=== PATIENT | male | born 1975 | race Caucasian/White ===

== ENCOUNTER 2021-12-11 18:09 | Emergency (ER) | payer SELFPAY ==
[~2021-12-11] VITALS: Ht 170.2 cm; Wt 106.0 kg
[2021-12-11 19:31] VITALS: BP 117/68
[2021-12-11] MEDS ORDERED: bacitracin 15gm ointment TP ONE (20:50)
[2021-12-11] MEDS ORDERED: sulfamethoxazole/trimethoprim DS (800/160mg) tablet PO ONE (20:50)
[2021-12-11] MEDS ORDERED: SULF1TAB49 PO (20:56)
[2021-12-12] MEDS ORDERED: SULF1TAB49 PO (11:51)
== END 2021-12-11 21:11 | disposition home or self-care (01) ==
LOC: ER 18:10
DX: L02.93 Carbuncle, unspecified (principal); Z79.899 Other long term (current) drug therapy
CPT/HCPCS: 99283; A6449

== ENCOUNTER 2023-04-08 13:48 | Emergency (ER) | payer MEDICAID ==
[~2023-04-08] VITALS: Ht 170.2 cm; Wt 104.4 kg
[2023-04-08 14:12] VITALS: TEMP 98.1
[2023-04-08] MEDS ORDERED: DOXYCYCLINE 100MG CAPSULE PO STA (15:10)
[2023-04-08] MEDS ORDERED: DOXY-411 PO (15:13)
[2023-04-08 15:38] VITALS: BP 110/70; PULSE 75; RESP 16; O2SAT 98
--- NOTE | 2023-04-08 18:48 | NUR ---
I AGREE WITH THE ASSESSMENT PER Bob COLINDRES LVN.
== END 2023-04-08 15:45 | disposition home or self-care (01) ==
LOC: ER 13:49
DX: K13.0 Diseases of lips (principal); L02.416 Cutaneous abscess of left lower limb
CPT/HCPCS: 73630; 82948; 87070; 87077; 87186; 99284